=== PATIENT | male | born 1945 | race Caucasian/White ===

== ENCOUNTER 2021-04-29 11:12 | Emergency (ER) | payer OTHER, MEDICARE ==
[~2021-04-29] VITALS: Ht 177.8 cm; Wt 110.2 kg
[~2021-04-29 11:12] MED LIST: DAPA5TAB PO; DILT300C54 PO; FLUT1DIS3 INH; GLU500 PO; HYDR-4497 PO; LEVO500T20 PO; LOSA1TAB3 PO; NEBI5TAB3 PO; RIVA10TA PO
--- NOTE | 2021-04-29 11:25 | NUR ---
Patient to ER bed 6 to gown for evaluation. Side rails up. Report given to IRVIN MORALEZ
--- NOTE | 2021-04-29 11:35 | NUR ---
DR ALBA AT BEDSIDE
[2021-04-29] MEDS ORDERED: LIDOCAINE 1%, 20 ML MDV 20 ML ONE (11:39)
--- NOTE | 2021-04-29 11:40 | NUR ---
WOUND CARE, CLEANED DRSG. TOLERATED WELL. BLEEDING CONTROLLED
--- NOTE | 2021-04-29 11:55 | NUR ---
SUTURE REPAIR BY KAYLEEN
--- NOTE | 2021-04-29 11:59 | NUR ---
DRSG APPLIED, SUTURES INTACT. LAC WELL APPROXIMATED
[2021-04-29] MEDS ORDERED: LIDOCAINE 1% 10 MG/ML, 20 ML MDV INJ ONE (12:00)
[2021-04-29] MEDS ORDERED: DIPH-TET-PERTUS Vaccine 0.5 ML VIAL (ADACEL) I.M. ONE (12:00)
--- NOTE | 2021-04-29 12:00 | NUR ---
Patient given written and verbal discharge instructions and verbalizes understanding. ER MD discussed with patient the results and treatment provided. Patient in stable condition. ID arm band removed. Patient educated on pain management and to follow up with PMD. Pain Scale 2/10 Opportunity for questions provided and answered. Medication side effect fact sheet provided.
[2021-04-29 12:19] VITALS: BP_SYST 126
== END 2021-04-29 12:19 | disposition home or self-care (01) ==
LOC: SED 11:12
DX: S61.211A Laceration without foreign body of left index finger without damage to nail, initial encounter (principal); S61.213A Laceration without foreign body of left middle finger without damage to nail, initial encounter; I10 Essential (primary) hypertension; E11.9 Type 2 diabetes mellitus without complications; I48.91 Unspecified atrial fibrillation; Z79.899 Other long term (current) drug therapy; W45.8XXA Other foreign body or object entering through skin, initial encounter; Y93.89 Activity, other specified; Y92.89 Other specified places as the place of occurrence of the external cause; Y99.8 Other external cause status
CPT/HCPCS: 12001; 90471; 90715; 99283; J2001

== ENCOUNTER 2021-05-06 09:15 | Emergency (ER) | payer OTHER, MEDICARE ==
[~2021-05-06] VITALS: Ht 175.3 cm; Wt 110.2 kg
[2021-05-06 09:25] VITALS: BP_SYST 123
--- NOTE | 2021-05-06 09:25 | NUR ---
RECEIVED AND IN ROOM, CALM, ALERT, DENIES FEVER/CHIL;LS, RESP UNLABORED
--- NOTE | 2021-05-06 09:30 | NUR ---
DR TORRES IN TO ASSESS
[2021-05-06 09:38] VITALS: BP_SYST 126
--- NOTE | 2021-05-06 09:38 | NUR ---
SUTURES REMOVED WOUND. WELL APPROXIMATED, NO BLEEDING OBSERVED
--- NOTE | 2021-05-06 09:42 | NUR ---
Patient given written and verbal discharge instructions and verbalizes understanding. ER MD discussed with patient the results and treatment provided. Patient in stable condition. ID arm band removed. Patient educated on pain management and to follow up with PMD. Pain Scale Opportunity for questions provided and answered.
== END 2021-05-06 09:42 | disposition home or self-care (01) ==
LOC: SED 09:15
DX: S61.211D Laceration without foreign body of left index finger without damage to nail, subsequent encounter (principal); S61.213D Laceration without foreign body of left middle finger without damage to nail, subsequent encounter; Z48.02 Encounter for removal of sutures; W45.8XXD Other foreign body or object entering through skin, subsequent encounter
CPT/HCPCS: 99281